=== PATIENT | female | born 1950 | race Caucasian/White ===

== ENCOUNTER 2017-10-28 09:09 | Outpatient (CLI) | payer MEDICARE, BC | END 2017-10-28 09:10 | disposition home or self-care (01) | LOC: BICMAMMO 09:09 | PROVIDERS: ATTEND Obstetrics & Gynecology | DX: Z12.31 Encounter for screening mammogram for malignant neoplasm of breast (principal) | CPT/HCPCS: 77063; 77067 ==

== ENCOUNTER 2019-06-13 10:38 | Outpatient (CLI) | payer MEDICARE, BC ==
--- NOTE | 2019-06-13 11:32 | MMO ---
Bilateral MAMMO Bilat Screen [facility]. CLINICAL HISTORY: Patient is 69 years old and is seen for screening. The patient has no family history of breast cancer. The patient has no personal history of cancer. VIEWS: The views performed were: bilateral craniocaudal with tomosynthesis and bilateral mediolateral oblique with tomosynthesis. FILMS COMPARED: The present examination has been compared to prior imaging studies performed at [facility] on 10/28/2017, and at [facility] on 08/23/2014, 08/26/2015 and 10/22/2016. This study has been interpreted with the assistance of computer-aided detection. MAMMOGRAM FINDINGS: The breasts are almost entirely fat. There are benign appearing calcifications seen in both breasts. There are no suspicious masses, suspicious calcifications, or new areas of architectural distortion. IMPRESSION: THERE IS NO MAMMOGRAPHIC EVIDENCE OF MALIGNANCY. A ROUTINE FOLLOW-UP MAMMOGRAM IN 1 YEAR IS RECOMMENDED. THE RESULTS OF THIS EXAM WERE SENT TO THE PATIENT. ACR BI-RADS Category 2 - Benign finding MAMMOGRAPHY NOTE: 1. A negative mammogram report should not delay a biopsy if a dominant of clinically suspicious mass is present. 2. Approximately 10% to 15% of breast cancers are not detected by mammography. 3. Adenosis and dense breasts may obscure an underlying neoplasm. Reported by: AC BARAHONA MD Electonically Signed: [id number]
== END 2019-06-13 10:39 | disposition home or self-care (01) ==
LOC: BICMAMMO 10:38
PROVIDERS: ATTEND Obstetrics & Gynecology
DX: Z12.31 Encounter for screening mammogram for malignant neoplasm of breast (principal)
CPT/HCPCS: 77063; 77067

== ENCOUNTER 2020-06-27 10:54 | Outpatient (CLI) | payer MEDICARE, BC ==
--- NOTE | 2020-06-27 12:43 | MMO ---
Bilateral MAMMO Bilat Screen [facility]. CLINICAL HISTORY: Patient is 70 years old and is seen for screening. The patient has no family history of breast cancer. The patient has no personal history of cancer. VIEWS: The views performed were: bilateral craniocaudal with tomosynthesis and bilateral mediolateral oblique with tomosynthesis. FILMS COMPARED: The present examination has been compared to prior imaging studies performed at [facility] on 10/28/2017 and 06/13/2019, and at [facility] on 08/26/2015 and 10/22/2016. This study has been interpreted with the assistance of computer-aided detection. MAMMOGRAM FINDINGS: There are scattered fibroglandular densities. Finding 1: There are stable benign appearing calcifications seen in both breasts. Finding 2: There are stable benign appearing densities seen in both breasts. There are no suspicious masses, suspicious calcifications, or new areas of architectural distortion. IMPRESSION: THERE IS NO MAMMOGRAPHIC EVIDENCE OF MALIGNANCY. A ROUTINE FOLLOW-UP MAMMOGRAM IN 1 YEAR IS RECOMMENDED. THE RESULTS OF THIS EXAM WERE SENT TO THE PATIENT. ACR BI-RADS Category 2 - Benign finding MAMMOGRAPHY NOTE: 1. A negative mammogram report should not delay a biopsy if a dominant of clinically suspicious mass is present. 2. Approximately 10% to 15% of breast cancers are not detected by mammography. 3. Adenosis and dense breasts may obscure an underlying neoplasm. Reported by: TIM BURTON MD Electonically Signed: [id number]
== END 2020-06-27 10:55 | disposition home or self-care (01) ==
LOC: BICMAMMO 10:54
PROVIDERS: ATTEND Obstetrics & Gynecology
DX: Z12.31 Encounter for screening mammogram for malignant neoplasm of breast (principal)
CPT/HCPCS: 77063; 77067

== ENCOUNTER 2021-07-01 11:12 | Outpatient (CLI) | payer MEDICARE, BC | END 2021-07-01 11:13 | disposition home or self-care (01) | LOC: BICMAMMO 11:12 | PROVIDERS: ATTEND Internal Medicine | DX: Z12.31 Encounter for screening mammogram for malignant neoplasm of breast (principal) | CPT/HCPCS: 77063; 77067 ==

== ENCOUNTER 2023-07-18 19:39 | Inpatient (IN) | payer MEDICARE, BC ==
[2023-07-18] MEDS ORDERED: Acetaminophen 325 MG TAB PO PRN (19:58)
[2023-07-18] MEDS ORDERED: Calcium Carbonate 500 MG ChewTAB PO PRN (19:58)
[2023-07-18] MEDS ORDERED: Ondansetron ODT 4 MG TAB PO PRN (19:58)
[2023-07-18] MEDS ORDERED: Lorazepam 0.5 MG TAB PO PRN (20:08)
[2023-07-18] MEDS ORDERED: Ipratropium/Albuterol 3 ML NEB NEB PRN (20:08)
[2023-07-18 20:19] VITALS: BMI 31.4
[2023-07-18] MEDS: Famotidine 20 MG TAB PO SCH (20:53)
[2023-07-18 20:59] LABS: Hematocrit 36.2 % (36.0-47.0); Hemoglobin 11.8 g/dL (12.0-16.0); Manual Diff?? YES; Mean Corpuscular HGB CONC 32.6 g/dL (32.0-36.0); Mean Corpuscular Hemoglobin 33.7 pg (27.0-31.0); Mean Platelet Volume 9.7 fL (7.4-10.4); RBC Distribution Width 14.3 % (11.5-14.5); White Blood Cell (WBC) Count 84.1 10x3/uL (4.8-10.8)
[2023-07-18 21:03] LABS: Delete Auto Diff?? YES; Mean Corpuscular Volume 103.4 fl (78.0-98.0)
[2023-07-18 21:24] LABS: ALT (SGPT) 19 U/L (8-55); AST (SGOT) 25 U/L (5-34); Albumin 4.9 g/dL (3.4-4.8); Alkaline Phosphatase 86 U/L (40-110); Anion Gap 17 mmol/L (10-20); BUN (Urea Nitrogen) 19 mg/dL (9.8-20.1); Bilirubin, Total 0.5 mg/dL (0.2-1.2); Calc. Creatinine Clearance 74 mL/min (70-130); Calcium 9.9 mg/dL (7.8-10.44); Carbon Dioxide 23 mmol/L (23-31); Chloride 99 mmol/L (98-107); Estimated GFR 78; Globulin 2.5 g/dL (2.4-3.5); Glucose 129 mg/dL (83-110); Potassium 4.3 mmol/L (3.5-5.1); Protein, Total 7.4 g/dL (5.8-8.1); Sodium 135 mmol/L (136-145)
[2023-07-18 21:40] LABS: Troponin I 0.731 ng/mL (< 0.028)
[2023-07-18 21:41] LABS: Anisocytosis SLIGHT = 6-15 cells HPF (0-5); Band 7 % (5-11); CellaVision Operator ID LAB.JMM; Eosinophils 2 % (0-10); Lymphocytes 65 % (21-51); Macrocytosis SLIGHT = 6-15 cells HPF (0-5); Monocytes 4 % (0-10); Neutrophil 21 % (42-75); Platelet Adequacy Comment Platelets Normal; Smudge Cells 132.3 %; Total Cell Count 99
[2023-07-18 21:44] LABS: Platelet Clumps MODERATE
[2023-07-18 23:59] LABS: Platelet Count 123 10x3/uL (130-400)
[2023-07-19] MEDS ORDERED: Ipratropium/Albuterol 3 ML NEB NEB SCH (01:00)
[2023-07-19 02:10] LABS: Troponin I 0.065 ng/mL (< 0.028)
[2023-07-19] MEDS: Levothyroxine Sodium 112 MCG TAB PO SCH (05:08)
[2023-07-19 05:43] LABS: Hematocrit 34.2 % (36.0-47.0); Hemoglobin 11.1 g/dL (12.0-16.0); Manual Diff?? YES; Mean Corpuscular HGB CONC 32.5 g/dL (32.0-36.0); Mean Corpuscular Hemoglobin 33.6 pg (27.0-31.0); Mean Corpuscular Volume 103.6 fl (78.0-98.0); Platelet Count 129 10x3/uL (130-400); RBC Distribution Width 14.2 % (11.5-14.5)
[2023-07-19 06:02] LABS: Delete Auto Diff?? YES
[2023-07-19 06:08] LABS: ALT (SGPT) 16 U/L (8-55); AST (SGOT) 20 U/L (5-34); Albumin 4.2 g/dL (3.4-4.8); Alkaline Phosphatase 71 U/L (40-110); Anion Gap 17 mmol/L (10-20); BUN (Urea Nitrogen) 16 mg/dL (9.8-20.1); Bilirubin, Total 0.7 mg/dL (0.2-1.2); Calc. Creatinine Clearance 78 mL/min (70-130); Calcium 9.3 mg/dL (7.8-10.44); Carbon Dioxide 26 mmol/L (23-31); Chloride 98 mmol/L (98-107); Estimated GFR 83; Globulin 2.5 g/dL (2.4-3.5); Glucose 106 mg/dL (83-110); Potassium 3.8 mmol/L (3.5-5.1); Protein, Total 6.7 g/dL (5.8-8.1); Sodium 137 mmol/L (136-145)
[2023-07-19 06:09] LABS: Troponin I 0.086 ng/mL (< 0.028)
[2023-07-19 06:21] LABS: Anisocytosis SLIGHT = 6-15 cells HPF (0-5); Band 4 % (5-11); CellaVision Operator ID LAB.JMM; Eosinophils 1 % (0-10); Lymphocytes 62 % (21-51); Macrocytosis SLIGHT = 6-15 cells HPF (0-5); Monocytes 4 % (0-10); Neutrophil 25 % (42-75); Platelet Adequacy Comment Platelets Normal; Polychromasia SLIGHT = 2-3 cells HPF (0-2); Reactive Lymphocytes 2 % (0-10); Smudge Cells 90.1 %; Total Cell Count 101
[2023-07-19] MEDS ORDERED: Mometasone 100 MCG HFA INHALER (RT USE) INH SCH (06:30)
[2023-07-19] MEDS: Losartan 25 MG TAB PO SCH (09:46)
[2023-07-19] MEDS: Famotidine 20 MG TAB PO SCH ×2 (09:46→21:26)
[2023-07-19] MEDS: Rosuvastatin 20 MG TAB PO SCH (09:47)
[2023-07-19] MEDS: TRELEGY ELLIPTA INH SCH (09:50)
[2023-07-20 05:32] LABS: Hematocrit 35.1 % (36.0-47.0); Hemoglobin 11.3 g/dL (12.0-16.0); Manual Diff?? YES; Mean Corpuscular HGB CONC 32.2 g/dL (32.0-36.0); Mean Corpuscular Hemoglobin 33.8 pg (27.0-31.0); Mean Corpuscular Volume 105.1 fl (78.0-98.0); Mean Platelet Volume 10.2 fL (7.4-10.4); Platelet Count 129 10x3/uL (130-400); RBC Distribution Width 14.2 % (11.5-14.5); Red Blood Cell (RBC) Count 3.34 mill/uL (4.20-5.40); White Blood Cell (WBC) Count 80.9 10x3/uL (4.8-10.8)
[2023-07-20 05:34] LABS: Delete Auto Diff?? YES
[2023-07-20 06:02] LABS: CellaVision Operator ID lab.abc; Eosinophils 2 % (0-10); Lymphocytes 77 % (21-51); Monocytes 3 % (0-10); Neutrophil 18 % (42-75); Platelet Adequacy Comment Platelets Decreased; RBC Morphology Within Normal Limits; Smudge Cells 82.8 %; Total Cell Count 99
[2023-07-20 06:18] LABS: Anion Gap 17 mmol/L (10-20); BUN (Urea Nitrogen) 14 mg/dL (9.8-20.1); Calc. Creatinine Clearance 81 mL/min (70-130); Calcium 9.5 mg/dL (7.8-10.44); Carbon Dioxide 23 mmol/L (23-31); Chloride 101 mmol/L (98-107); Estimated GFR 86; Glucose 104 mg/dL (83-110); Potassium 3.8 mmol/L (3.5-5.1); Sodium 137 mmol/L (136-145)
[2023-07-20] MEDS: Levothyroxine Sodium 112 MCG TAB PO SCH (06:30)
[2023-07-20] MEDS: Losartan 25 MG TAB PO SCH (08:28)
[2023-07-20] MEDS: Famotidine 20 MG TAB PO SCH (08:28)
[2023-07-20] MEDS: TRELEGY ELLIPTA INH SCH (08:29)
[2023-07-20] MEDS: Rosuvastatin 20 MG TAB PO SCH (08:29)
[2023-07-20 11:56] VITALS: BP 142/77; TEMP 98.3
[2023-07-20] MEDS ORDERED: Rosuvastatin 20 MG TAB PO SCH (21:00)
== END 2023-07-20 11:43 | disposition home or self-care (01) | DRG 190 ==
LOC: T4-B 19:44 → 2SW 07-19 00:25 → OBSVTOIN 07-19 11:08
PROVIDERS: ADMIT Family Medicine; ATTEND Internal Medicine
DX: J44.1 Chronic obstructive pulmonary disease with (acute) exacerbation (principal); I21.A1 Myocardial infarction type 2; C91.10 Chronic lymphocytic leukemia of B-cell type not having achieved remission; E03.9 Hypothyroidism, unspecified; E78.5 Hyperlipidemia, unspecified; Z79.899 Other long term (current) drug therapy; I10 Essential (primary) hypertension; Z98.890 Other specified postprocedural states; Z82.49 Family history of ischemic heart disease and other diseases of the circulatory system; I25.10 Atherosclerotic heart disease of native coronary artery without angina pectoris; E78.00 Pure hypercholesterolemia, unspecified
CPT/HCPCS: 36415; 36416; 80048; 80053; 80061; 83880; 84443; 84484; 85025; 85060; 88184; 88185; 93306; 94640; 94760; G0378; J7620

== ENCOUNTER 2023-07-21 13:46 | Outpatient (CLI) | payer MEDICARE, BC | END 2023-07-21 13:47 | disposition home or self-care (01) | LOC: BICMAMMO 13:46 | PROVIDERS: ATTEND Obstetrics & Gynecology | DX: Z12.31 Encounter for screening mammogram for malignant neoplasm of breast (principal); Z85.6 Personal history of leukemia | CPT/HCPCS: 77063; 77067 ==

== ENCOUNTER 2024-07-24 13:36 | Outpatient (CLI) | payer MEDICARE, BC | END 2024-07-24 13:37 | disposition home or self-care (01) | LOC: BICMAMMO 13:36 | PROVIDERS: ATTEND Internal Medicine | DX: Z12.31 Encounter for screening mammogram for malignant neoplasm of breast (principal); Z85.6 Personal history of leukemia | CPT/HCPCS: 77063; 77067 ==

== ENCOUNTER 2025-04-18 12:58 | Outpatient (CLI) | payer MEDICARE, BC | END 2025-04-18 12:59 | disposition home or self-care (01) | LOC: BICMAMMO 12:58 | PROVIDERS: ATTEND Internal Medicine | DX: Z78.0 Asymptomatic menopausal state (principal); M85.851 Other specified disorders of bone density and structure, right thigh; M85.852 Other specified disorders of bone density and structure, left thigh | CPT/HCPCS: 77080 ==

== ENCOUNTER 2025-07-31 10:52 | Outpatient (CLI) | payer MEDICARE, BC | END 2025-07-31 10:53 | disposition home or self-care (01) | LOC: BICMAMMO 10:52 | PROVIDERS: ATTEND Internal Medicine | DX: Z12.31 Encounter for screening mammogram for malignant neoplasm of breast (principal); Z85.6 Personal history of leukemia | CPT/HCPCS: 77063; 77067 ==